=== PATIENT | female | born 1980 ===

== ENCOUNTER → 2018-01-28 | Outpatient (REF) | payer OTHER ==
[2018-01-28 15:55] LABS: CHOLESTEROL LEVEL 161 MG/DL (<200); CHOLESTEROL RISK RATIO 4.128 (<5); FREE T4 1.63 NG/DL (0.76-1.46); HDL CHOLESTEROL 39 MG/DL (>40); LDL CHOLESTEROL 100 MG/DL (<100); NON-HDL-C 122 MG/DL; TRIGLYCERIDES LEVEL 112 MG/DL (<150)
[2018-01-28 16:41] LABS: TESTOSTERONE 55 NG/DL (14-76)
== END ==
LOC: M LABDRAW1 12:06
DX: E89.0 Postprocedural hypothyroidism (principal); L68.0 Hirsutism
CPT/HCPCS: 84403